=== PATIENT | female | born 1955 | race Caucasian/White ===

== ENCOUNTER 2023-02-06 18:46 | Inpatient (IN) | payer MEDICARE, MEDICAID ==
[~2023-02-06 18:46] MED LIST: Iopamidol-370 76% 500 ML MDV (1 ML CHARGE) ONE
[2023-02-06] MEDS ORDERED: NOREPINEPHRINE 8 MG/250 ML-D5W 250 ML ONE (18:54)
[2023-02-06] MEDS ORDERED: Sodium Bicarb 50 MEQ/50 ML Abboject 8.4% SYRINGE ONE (18:55)
[2023-02-06 19:04] LABS: #Basophils 0.1 thou/uL (0.0-0.2); #Monocytes 2.1 thou/uL (0.11-0.59); #Neutrophils 17.6 thou/uL (1.40-6.50); %Basophils 0.3 % (0.0-1.0); %Lymphocytes 14.7 % (21.0-51.0); %Monocytes 8.8 % (0.0-10.0); %Neutrophils 73.8 % (42.0-75.0); Hematocrit 37.8 % (36.0-47.0); Mean Corpuscular HGB CONC 31.7 g/dL (32.0-36.0); Mean Corpuscular Hemoglobin 29.6 pg (27.0-31.0); Mean Corpuscular Volume 93.1 fl (78.0-98.0); Mean Platelet Volume 10.5 fL (7.4-10.4); Platelet Count 350 10x3/uL (130-400); RBC Distribution Width 13.3 % (11.5-14.5); Red Blood Cell (RBC) Count 4.06 mill/uL (4.20-5.40); White Blood Cell (WBC) Count 23.8 10x3/uL (4.8-10.8)
[2023-02-06] MEDS ORDERED: metroNIDAZOLE 500 MG/100 ML BAG ONE (19:11)
[2023-02-06] MEDS ORDERED: Vancomycin 1 GM/200 ML (FROZEN) BAG ONE (19:11)
[2023-02-06] MEDS ORDERED: Cefepime 2 GM VIAL ONE (19:11)
[2023-02-06 19:18] LABS: PTT 30.6 sec (22.9-36.1)
[2023-02-06 19:19] LABS: INR-International Normal Ratio 1.2; Prothrombin Time 15.9 sec (12.0-14.7)
[2023-02-06 19:30] LABS: BUN (Urea Nitrogen) 67 mg/dL (9.8-20.1); Calc. Creatinine Clearance 0 mL/min (70-130); Chloride 90 mmol/L (98-107); Potassium 5.7 mmol/L (3.5-5.1); Sodium 130 mmol/L (136-145)
[2023-02-06 19:31] LABS: ALT (SGPT) 33 U/L (8-55); AST (SGOT) 40 U/L (5-34); Albumin 3.9 g/dL (3.4-4.8); Alkaline Phosphatase 103 U/L (40-110); Bilirubin, Total 0.3 mg/dL (0.2-1.2); Calcium 8.6 mg/dL (7.8-10.44); Estimated GFR 14; Globulin 2.6 g/dL (2.4-3.5); Magnesium 3.1 mg/dL (1.6-2.6); Protein, Total 6.5 g/dL (5.8-8.1)
[2023-02-06 19:51] LABS: Carbon Dioxide Less than 8 mmol/L (23-31); Glucose 715 mg/dL (80-115)
[2023-02-06] MEDS ORDERED: INSULIN REGULAR IN 0.9 % NACL 100 UNITS/100 ML BAG ONE (20:25)
[2023-02-06 20:26] LABS: Analyzer IN Cardio ER; Base Excess -27.1 mEq/L (-2.0 to +3.0); Calcium, Ionized (venous) 1.12 mmol/L (1.16-1.32); Chloride (VBG) 93 mmol/L (98-106); Hematocrit-VBG 36 % (36.0-47.0); Hemoglobin (Hb) 12.4 g/dL (11.7-16.1); Potassium (VBG) 5.73 mmol/L (3.70-5.30); Sodium 129.7 mmol/L (133-146)
[2023-02-06 20:32] LABS: Actual Bicarbonate (HCO3v) 4.3 mEq/L (22-28); pH (venous) 6.915 (7.32-7.43)
[2023-02-06] MEDS ORDERED: Sodium Bicarb 50 MEQ/50 ML VIAL ONE (20:43)
[2023-02-06 21:03] LABS: Acetaminophen Less than 10 mcg/mL (10.0-30.0); Alcohol Less than 10.0 mg/dL (Less than 10); Lipase 35 U/L (8-78); Salicylate Less than 8.0 mg/dL (15.0-30.0)
[2023-02-06 22:41] LABS: SARS-CoV-2 NAA Rapid Test Not Detected (NotDetected)
[2023-02-06 23:21] LABS: Lactic Acid 3.7 mmol/L (0.5-2.2)
[2023-02-06 23:56] LABS: Chloride 94 mmol/L (98-107); Potassium 5.1 mmol/L (3.5-5.1); Sodium 130 mmol/L (136-145)
[2023-02-06 23:57] LABS: Calcium 8.2 mg/dL (7.8-10.44)
[2023-02-07 00:01] LABS: BUN (Urea Nitrogen) 65 mg/dL (9.8-20.1); Calc. Creatinine Clearance 0 mL/min (70-130); Estimated GFR 15
[2023-02-07 00:04] LABS: Carbon Dioxide Less than 8 mmol/L (23-31); Glucose 676 mg/dL (80-115)
[2023-02-07] MEDS ORDERED: Sodium Chloride 0.9% 1,000 ML IV PRN ×4 (00:17)
[2023-02-07] MEDS ORDERED: Dextrose 50% Abboject 50 ML SYRINGE SLOW IVP PRN (00:17)
[2023-02-07] MEDS ORDERED: NS 0.9% w/ 20 MEQ KCL 1,000 ML IV PRN ×2 (00:17)
[2023-02-07] MEDS ORDERED: D5 1/2 NS w/20 mEq KCL 1,000 ML IV PRN (00:17)
[2023-02-07] MEDS ORDERED: Dextrose 5 %-0.45 % NaCl 1,000 ML IV PRN (00:17)
[2023-02-07] MEDS ORDERED: Electrolyte Replacement Protocol 1 EACH IVPB PRN (00:17)
[2023-02-07] MEDS ORDERED: Ipratropium/Albuterol 3 ML NEB EZPAP PRN (00:29)
[2023-02-07] MEDS ORDERED: NOREPINEPHRINE 8 MG/250 ML-D5W 250 ML IVPB SCH (00:30)
[2023-02-07] MEDS ORDERED: HUMULIN R 100 UNITS in Sodium Chloride 0.9% 100 ML IVPB SCH (00:30)
[2023-02-07] MEDS ORDERED: Vancomycin Dose by Levels Sliding Scale (Wt 71-99) FS SCH (00:45)
[2023-02-07] MEDS ORDERED: Vancomycin HCl 750 MG in Sodium Chloride 0.9% 250 ML 250 ML IVPB SCH ×2 (00:45→19:15)
[2023-02-07 00:59] LABS: Troponin I 0.293 ng/mL (< 0.028)
[2023-02-07] MEDS ORDERED: Aspirin 81 mg Enteric Coated Tablet PO SCH (01:00)
[2023-02-07] MEDS ORDERED: Sodium Bicarb 50 MEQ/50 ML VIAL IVP SCH (01:30)
[2023-02-07] MEDS ORDERED: Hydrocortisone Sod Succ/PF 100 mg/2 ml Vial IVP SCH (01:30)
[2023-02-07 01:57] LABS: Bacteria/HPF None Seen HPF (None Seen); Bilirubin Negative (Negative); Blood, Urine Trace (Negative); CAUTI Indications for Culture Alt mental st,lethar; Clarity Clear (Clear); Glucose, Urine (Dipstick) Greater than 1000 mg/dL (Negative); Ketone, Urine 20 mg/dL (Negative); Leukocyte Negative Leu/uL (Negative); Nitrite Negative (Negative); Protein, Urine (Dipstick) 20 mg/dL (Neg-Trace); RBC/HPF 0-3 HPF (0-3); Specific Gravity, Urine 1.019 (1.002-1.036); Squamous Epithelial None Seen HPF (0-3); Urobilinogen Normal mg/dL (Less than 2); WBC/HPF 0-3 HPF (0-3)
[2023-02-07 01:59] LABS: Urine Culture Reflex No No
[2023-02-07 03:01] LABS: Glucose 597 mg/dL (80-115)
[2023-02-07 03:16] LABS: CKMB 10.4 ng/mL (0-6.6)
[2023-02-07 03:30] LABS: Glucose 545 mg/dL (80-115)
[2023-02-07 05:22] LABS: Lactic Acid 2.1 mmol/L (0.5-2.2)
[2023-02-07 05:27] LABS: Hemoglobin A1c 8.5 % (4.0-6.0)
[2023-02-07 05:40] LABS: ALT (SGPT) 31 U/L (8-55); AST (SGOT) 43 U/L (5-34); Albumin 3.6 g/dL (3.4-4.8); Alkaline Phosphatase 91 U/L (40-110); Bilirubin, Direct 0.2 mg/dL (0.1-0.3); Bilirubin, Total 0.2 mg/dL (0.2-1.2); Cardiac Risk 3.9 (Less than 4.5); Cholesterol 152 mg/dl (< 200 Desired); HDL Cholesterol 39 mg/dL (>60 Neg Risk); LDL Cholesterol, Calculated 60 mg/dL; Protein, Total 5.9 g/dL (5.8-8.1); Triglycerides 267 mg/dL (Less than 150)
[2023-02-07 05:59] LABS: Anion Gap 28 mmol/L (10-20); BUN (Urea Nitrogen) 65 mg/dL (9.8-20.1); Calc. Creatinine Clearance 28 mL/min (70-130); Calcium 7.9 mg/dL (7.8-10.44); Carbon Dioxide 16 mmol/L (23-31); Chloride 99 mmol/L (98-107); Estimated GFR 19; Potassium 4.2 mmol/L (3.5-5.1); Sodium 139 mmol/L (136-145)
[2023-02-07 06:00] LABS: Troponin I 0.875 ng/mL (< 0.028)
[2023-02-07 06:01] LABS: Magnesium 2.2 mg/dL (1.6-2.6)
[2023-02-07 06:14] LABS: Glucose 468 mg/dL (80-115)
[2023-02-07] MEDS: Cefepime 1 GM in Sodium Chloride 0.9% 100 ML IVPB SCH ×2 (08:02→20:17)
[2023-02-07] MEDS: Hydrocortisone Sod Succ/PF 100 mg/2 ml Vial IVP SCH ×3 (08:58→21:50)
[2023-02-07] MEDS ORDERED: Heparin 5,000 UNITS/ML VIAL SC SCH (09:00)
[2023-02-07] MEDS: Heparin 5,000 UNITS/ML VIAL SC SCH ×3 (09:17→20:20)
[2023-02-07] MEDS: Aspirin 81 mg Enteric Coated Tablet PO SCH (09:18)
[2023-02-07 10:28] LABS: Anion Gap 18 mmol/L (10-20); BUN (Urea Nitrogen) 59 mg/dL (9.8-20.1); Calc. Creatinine Clearance 32 mL/min (70-130); Calcium 7.8 mg/dL (7.8-10.44); Carbon Dioxide 23 mmol/L (23-31); Chloride 105 mmol/L (98-107); Estimated GFR 22; Glucose 251 mg/dL (80-115); Sodium 142 mmol/L (136-145)
[2023-02-07] MEDS ORDERED: Ondansetron ODT 4 MG TAB PO PRN (14:47)
[2023-02-07] MEDS ORDERED: Insulin Regular 300 UNITS/3 ML VIAL SC PRN ×2 (15:15→17:39)
[2023-02-07] MEDS ORDERED: Glucagon 1 MG/ML KIT IM PRN (15:15)
[2023-02-07] MEDS ORDERED: Dextrose 50% Abboject 50 ML SYRINGE IVP PRN (15:15)
[2023-02-07] MEDS ORDERED: Dextrose 5% in Water 1,000 ML IV PRN (15:15)
[2023-02-07] MEDS: Ondansetron PF 4 MG/2 ML Vial IVP PRN (17:11)
[2023-02-07] MEDS: D5 1/2 NS w/20 mEq KCL 1,000 ML IV SCH ×2 (17:13→19:59)
[2023-02-07] MEDS: HumaLOG 300 UNITS/3 ML VIAL SC PRN (17:55)
[2023-02-07 18:50] LABS: Vancomycin, Trough 11.1 ug/mL
[2023-02-07 19:22] LABS: Anion Gap 20 mmol/L (10-20); BUN (Urea Nitrogen) 47 mg/dL (9.8-20.1); Calc. Creatinine Clearance 37 mL/min (70-130); Calcium 7.7 mg/dL (7.8-10.44); Carbon Dioxide 20 mmol/L (23-31); Chloride 107 mmol/L (98-107); Estimated GFR 26; Potassium 5.1 mmol/L (3.5-5.1); Sodium 142 mmol/L (136-145)
[2023-02-07 19:30] LABS: Glucose 405 mg/dL (80-115)
[2023-02-07] MEDS ORDERED: Sodium Bicarbonate 50 MEQ in Sodium Chloride 0.45% 1,000 ML IV SCH (19:45)
[2023-02-08] MEDS: HumaLOG 300 UNITS/3 ML VIAL SC PRN ×2 (00:15→04:25)
[2023-02-08] MEDS: Hydrocortisone Sod Succ/PF 100 mg/2 ml Vial IVP SCH ×3 (02:05→15:50)
[2023-02-08] MEDS ORDERED: Adenosine 6 MG/2 ML VIAL ONE ×2 (04:31→08:01)
[2023-02-08 04:55] LABS: #Monocytes 0.9 thou/uL (0.11-0.59); %Basophils 0.1 % (0.0-1.0); %Lymphocytes 6.7 % (21.0-51.0); %Monocytes 7.7 % (0.0-10.0); %Neutrophils 84.1 % (42.0-75.0); Hematocrit 31.6 % (36.0-47.0); Hemoglobin 10.5 g/dL (12.0-16.0); Mean Corpuscular HGB CONC 33.2 g/dL (32.0-36.0); Mean Corpuscular Hemoglobin 29.3 pg (27.0-31.0); Mean Corpuscular Volume 88.3 fl (78.0-98.0); Mean Platelet Volume 10.6 fL (7.4-10.4); Platelet Count 196 10x3/uL (130-400); RBC Distribution Width 14.3 % (11.5-14.5); Red Blood Cell (RBC) Count 3.58 mill/uL (4.20-5.40); White Blood Cell (WBC) Count 11.9 10x3/uL (4.8-10.8)
[2023-02-08] MEDS ORDERED: Adenosine 6 MG/2 ML VIAL IVP SCH ×3 (05:00→08:45)
[2023-02-08] MEDS ORDERED: Amiodarone 150 MG in Dextrose 5% in Water 100 ML IVPB SCH (05:00)
[2023-02-08 05:24] LABS: Anion Gap 25 mmol/L (10-20); BUN (Urea Nitrogen) 45 mg/dL (9.8-20.1); Calc. Creatinine Clearance 40 mL/min (70-130); Calcium 7.8 mg/dL (7.8-10.44); Carbon Dioxide 15 mmol/L (23-31); Chloride 104 mmol/L (98-107); Estimated GFR 29; Magnesium 2.2 mg/dL (1.6-2.6); Potassium 5.1 mmol/L (3.5-5.1); Sodium 139 mmol/L (136-145)
[2023-02-08 05:35] LABS: Glucose 473 mg/dL (80-115)
[2023-02-08 05:51] LABS: Critical Call Chem Troponin I RESULT DECREASING
[2023-02-08] MEDS ORDERED: HUMULIN R 100 UNITS in Sodium Chloride 0.9% 100 ML IVPB SCH (06:00)
[2023-02-08 06:09] LABS: CKMB 8.5 ng/mL (0-6.6)
[2023-02-08] MEDS ORDERED: Sodium Bicarbonate 50 MEQ in Sodium Chloride 0.45% 1,000 ML IV SCH (06:15)
[2023-02-08] MEDS ORDERED: Sodium Bicarb 50 MEQ/50 ML VIAL ONE (08:11)
[2023-02-08] MEDS ORDERED: EPINEPHrine 1 MG/10 ML Abboject SYRINGE ONE (08:13)
[2023-02-08] MEDS ORDERED: Midazolam HCl 2 mg/2 ml Vial ONE (08:26)
[2023-02-08] MEDS ORDERED: Amiodarone 450 MG in Dextrose 5% in Water 250 ML IVPB SCH (08:30)
[2023-02-08] MEDS ORDERED: Sodium Bicarb 50 MEQ/50 ML VIAL IVP SCH (08:30)
[2023-02-08] MEDS ORDERED: Amiodarone 150 MG/3 ML VIAL IVP SCH (08:30)
[2023-02-08] MEDS ORDERED: Adenosine 6 MG/2 ML VIAL IVP PRN (08:31)
[2023-02-08] MEDS ORDERED: Digoxin 0.5 MG/2 ML AMP ONE (08:33)
[2023-02-08 08:39] LABS: Base Excess (BEa) -18.6 mEq/L (-2.0 to +3.0); CO2 Tension 21.7 mmHg (35.0-45.0); Calcium, Ionized (arterial) 1.08 mmol/L (1.12-1.30); Carboxyhemoglobin (COHb) 0.3 gm% (0.0-3.0); Hematocrit-ABG 33 % (36.0-47.0); Hemoglobin (Hb) 11.2 g/dL (12.0-16.0); O2 Tension (PaO2), arterial 81.8 mmHg (> 80.0); Potassium - ABG Lab 4.56 mmol/L (3.70-5.30); Puncture Site RRA; pH, Arterial 7.182 (7.35-7.45)
[2023-02-08 08:40] LABS: ALV-art Gradient 40.805 mmHg (0-20)
[2023-02-08] MEDS ORDERED: Digoxin 0.5 MG/2 ML AMP SLOW IVP SCH (08:45)
[2023-02-08] MEDS ORDERED: dilTIAZem 25 MG/5 ML VIAL ONE (08:47)
[2023-02-08] MEDS ORDERED: dilTIAZem 25 MG/5 ML VIAL SLOW IVP SCH (09:00)
[2023-02-08] MEDS ORDERED: Insulin Glargine 30 UNITS/0.3 ML VIAL SC SCH ×2 (09:00→19:00)
[2023-02-08 09:17] LABS: Anion Gap 29 mmol/L (10-20); BUN (Urea Nitrogen) 50 mg/dL (9.8-20.1); Calc. Creatinine Clearance 36 mL/min (70-130); Calcium 7.3 mg/dL (7.8-10.44); Carbon Dioxide 10 mmol/L (23-31); Chloride 106 mmol/L (98-107); Estimated GFR 26; Potassium 4.8 mmol/L (3.5-5.1); Sodium 140 mmol/L (136-145)
[2023-02-08 09:25] LABS: Glucose 510 mg/dL (80-115)
[2023-02-08] MEDS: Heparin 5,000 UNITS/ML VIAL SC SCH ×3 (09:34→19:59)
[2023-02-08] MEDS: Aspirin 81 mg Enteric Coated Tablet PO SCH (09:34)
[2023-02-08] MEDS: Levothyroxine 150 MCG TAB PO SCH (09:34)
[2023-02-08] MEDS: Cefepime 1 GM in Sodium Chloride 0.9% 100 ML IVPB SCH ×2 (09:35→19:58)
[2023-02-08] MEDS: dilTIAZem 125 MG in Sodium Chloride 0.9% 100 ML IVPB SCH (09:35)
[2023-02-08 14:03] LABS: Anion Gap 21 mmol/L (10-20); BUN (Urea Nitrogen) 43 mg/dL (9.8-20.1); Calc. Creatinine Clearance 39 mL/min (70-130); Calcium 7.3 mg/dL (7.8-10.44); Carbon Dioxide 20 mmol/L (23-31); Chloride 107 mmol/L (98-107); Estimated GFR 29; Glucose 296 mg/dL (80-115); Potassium 4.1 mmol/L (3.5-5.1); Sodium 144 mmol/L (136-145)
[2023-02-08 18:08] LABS: Anion Gap 12 mmol/L (10-20); BUN (Urea Nitrogen) 39 mg/dL (9.8-20.1); Calc. Creatinine Clearance 45 mL/min (70-130); Calcium 7.5 mg/dL (7.8-10.44); Carbon Dioxide 27 mmol/L (23-31); Chloride 107 mmol/L (98-107); Estimated GFR 34; Glucose 151 mg/dL (80-115); Potassium 3.9 mmol/L (3.5-5.1); Sodium 142 mmol/L (136-145)
[2023-02-08] MEDS ORDERED: HumaLOG 300 UNITS/3 ML VIAL SC PRN (18:39)
[2023-02-08] MEDS ORDERED: Dextrose 5% in Water 1,000 ML IV PRN (18:39)
[2023-02-08] MEDS: Potassium Chloride 20 MEQ in Lactated Ringer's 1,000 ML IV SCH (19:10)
[2023-02-08 21:46] LABS: Vancomycin, Random 8.6 ug/mL (See Comment)
[2023-02-08 21:49] LABS: Anion Gap 13 mmol/L (10-20); BUN (Urea Nitrogen) 37 mg/dL (9.8-20.1); Calc. Creatinine Clearance 47 mL/min (70-130); Calcium 7.3 mg/dL (7.8-10.44); Carbon Dioxide 26 mmol/L (23-31); Chloride 105 mmol/L (98-107); Estimated GFR 36; Glucose 226 mg/dL (80-115); Potassium 4.4 mmol/L (3.5-5.1); Sodium 140 mmol/L (136-145)
[2023-02-08] MEDS ORDERED: VANCOMYCIN 1.25 GM/250 ML BAG 1.25 GM in Premix Bag 1 BAG IVPB SCH (22:00)
[2023-02-08] MEDS ORDERED: Vancomycin 1.5 GRAM/300 ML BAG 1.5 GM in Premix Bag 1 BAG IVPB SCH (22:00)
[2023-02-09 05:05] LABS: Anion Gap 16 mmol/L (10-20); BUN (Urea Nitrogen) 33 mg/dL (9.8-20.1); Calc. Creatinine Clearance 52 mL/min (70-130); Calcium 7.4 mg/dL (7.8-10.44); Carbon Dioxide 24 mmol/L (23-31); Chloride 102 mmol/L (98-107); Estimated GFR 40; Glucose 218 mg/dL (80-115); Magnesium 2.3 mg/dL (1.6-2.6); Potassium 4.2 mmol/L (3.5-5.1); Sodium 138 mmol/L (136-145)
[2023-02-09] MEDS: Potassium Chloride 20 MEQ in Lactated Ringer's 1,000 ML IV SCH ×3 (05:07→18:50)
[2023-02-09 05:15] VITALS: BMI 35.6
[2023-02-09 05:24] LABS: Free T4 (Free Thyroxine) 1.02 ng/dL (0.70-1.48)
[2023-02-09] MEDS: HumaLOG 300 UNITS/3 ML VIAL SC PRN ×3 (06:33→12:54)
[2023-02-09] MEDS: dilTIAZem 125 MG in Sodium Chloride 0.9% 100 ML IVPB SCH (08:32)
[2023-02-09] MEDS: Heparin 5,000 UNITS/ML VIAL SC SCH ×3 (08:44→23:17)
[2023-02-09] MEDS: Cefepime 1 GM in Sodium Chloride 0.9% 100 ML IVPB SCH (08:51)
[2023-02-09] MEDS: Levothyroxine 150 MCG TAB PO SCH (08:52)
[2023-02-09] MEDS: Aspirin 81 mg Enteric Coated Tablet PO SCH (08:52)
[2023-02-09] MEDS ORDERED: Insulin Glargine 30 UNITS/0.3 ML VIAL SC SCH (09:00)
[2023-02-09] MEDS ORDERED: Hydrocortisone Sod Succ/PF 100 mg/2 ml Vial IVP SCH (09:00)
[2023-02-09] MEDS: Cefdinir 300 MG CAP PO SCH (23:18)
[2023-02-10] MEDS: Potassium Chloride 20 MEQ in Lactated Ringer's 1,000 ML IV SCH ×2 (04:09→12:57)
[2023-02-10] MEDS: Ondansetron PF 4 MG/2 ML Vial IVP PRN ×2 (04:25→12:10)
[2023-02-10 05:09] LABS: Anion Gap 11 mmol/L (10-20); BUN (Urea Nitrogen) 19 mg/dL (9.8-20.1); Calc. Creatinine Clearance 76 mL/min (70-130); Calcium 8.3 mg/dL (7.8-10.44); Carbon Dioxide 28 mmol/L (23-31); Chloride 105 mmol/L (98-107); Estimated GFR 64; Glucose 118 mg/dL (80-115); Potassium 3.9 mmol/L (3.5-5.1); Sodium 140 mmol/L (136-145)
[2023-02-10] MEDS ORDERED: Insulin Glargine 30 UNITS/0.3 ML VIAL SC SCH (09:00)
[2023-02-10] MEDS: Heparin 5,000 UNITS/ML VIAL SC SCH ×3 (09:17→21:07)
[2023-02-10] MEDS: Aspirin 81 mg Enteric Coated Tablet PO SCH (09:18)
[2023-02-10] MEDS: Levothyroxine 150 MCG TAB PO SCH (09:18)
[2023-02-10] MEDS: Cefdinir 300 MG CAP PO SCH ×2 (09:19→21:07)
[2023-02-10] MEDS: dilTIAZem CD 180 MG CAP PO SCH (09:19)
[2023-02-11 04:24] VITALS: BP 135/66; TEMP 97.7
[2023-02-11 05:13] LABS: Anion Gap 11 mmol/L (10-20); BUN (Urea Nitrogen) 11 mg/dL (9.8-20.1); Calc. Creatinine Clearance 84 mL/min (70-130); Calcium 8.5 mg/dL (7.8-10.44); Carbon Dioxide 30 mmol/L (23-31); Chloride 97 mmol/L (98-107); Estimated GFR 74; Glucose 161 mg/dL (80-115); Potassium 3.9 mmol/L (3.5-5.1); Sodium 134 mmol/L (136-145)
[2023-02-11] MEDS ORDERED: Insulin Glargine 30 UNITS/0.3 ML VIAL SC SCH (09:00)
[2023-02-11] MEDS: Heparin 5,000 UNITS/ML VIAL SC SCH (09:45)
[2023-02-11] MEDS: dilTIAZem CD 180 MG CAP PO SCH (09:47)
[2023-02-11] MEDS: Aspirin 81 mg Enteric Coated Tablet PO SCH (09:47)
[2023-02-11] MEDS: Cefdinir 300 MG CAP PO SCH (09:47)
[2023-02-11] MEDS: Levothyroxine 150 MCG TAB PO SCH (09:47)
== END 2023-02-11 11:50 | disposition home or self-care (01) | DRG 871 ==
LOC: ERS 18:46 → CCU 22:36 → 2NO 02-09 15:51
PROVIDERS: ADMIT Internal Medicine; ATTEND Internal Medicine
PROC: 4A133R1 Monitoring of Arterial Saturation, Peripheral, Percutaneous Approach (ICD-10-PCS; principal; 2023-02-06)
PROC: 3E033XZ Introduction of Vasopressor into Peripheral Vein, Percutaneous Approach (ICD-10-PCS; 2023-02-06)
PROC: 3E03329 Introduction of Other Anti-infective into Peripheral Vein, Percutaneous Approach (ICD-10-PCS; 2023-02-08)
DX: A41.9 Sepsis, unspecified organism (principal); E11.10 Type 2 diabetes mellitus with ketoacidosis without coma; G93.41 Metabolic encephalopathy; J18.9 Pneumonia, unspecified organism; I21.A1 Myocardial infarction type 2; N17.9 Acute kidney failure, unspecified; E87.1 Hypo-osmolality and hyponatremia; I47.1 Supraventricular tachycardia; I11.0 Hypertensive heart disease with heart failure; I50.9 Heart failure, unspecified; E78.5 Hyperlipidemia, unspecified; I25.10 Atherosclerotic heart disease of native coronary artery without angina pectoris; J44.9 Chronic obstructive pulmonary disease, unspecified; M79.7 Fibromyalgia; G47.33 Obstructive sleep apnea (adult) (pediatric); Z20.822 Contact with and (suspected) exposure to COVID-19; Z88.5 Allergy status to narcotic agent; Z79.4 Long term (current) use of insulin; Z88.8 Allergy status to other drugs, medicaments and biological substances; Z79.899 Other long term (current) drug therapy; Z90.710 Acquired absence of both cervix and uterus; Z96.652 Presence of left artificial knee joint; Z82.49 Family history of ischemic heart disease and other diseases of the circulatory system; Z87.891 Personal history of nicotine dependence; E11.40 Type 2 diabetes mellitus with diabetic neuropathy, unspecified; E87.5 Hyperkalemia
CPT/HCPCS: 36415; 36416; 36556; 36600; 70450; 71045; 71275; 72125; 74177; 80048; 80053; 80061; 80076; 80202; 80307; 81001; 82010; 82550; 82553; 82805; 83036; 83605; 83690; 83735; 83880; 84145; 84439; 84443; 84481; 84484; 85025; 85610; 85730; 87040; 87149; 93005; 93010; 93306; 96365; 96366; 96368; 96375; 99292; J0153; J0282; J0692; J1160; J1644; J1720; J1815; J2405; J3370; J3370-JW; J3480; J3490; J7050; J7120; J7999; Q9967; U0002